=== PATIENT | male | born 1950 | race American Indian/Alaskan Native ===

== ENCOUNTER 2017-03-17 11:26 | Day surgery (SDC) | payer MEDICARE, MEDICAID ==
--- NOTE | 2017-03-17 14:59 | CP.SDSHP ---
Same Day Surgery H & P - History Proposed Procedure: Paracentesis Pre-Op Diagnosis: Liver disease - Allergies Allergies: Allergies JAYANT Inhibitors Allergy (Verified 03/17/17 11:50) RASH simvastatin Allergy (Verified 03/17/17 11:49) RASH - Physical Exam Vital Signs: Vital Signs 03/17/17 12:02 Temperature 98.2 F Pulse Rate 82 Respiratory 18 Rate Blood Pressure 125/67 O2 Sat by Pulse 96 Oximetry Short Stay Discharge - Short Stay Discharge Admitting Diagnosis/Reason for Visit: LIVER CIRRHOSIS Disposition: HOME/ ROUTINE
[2017-03-17] MEDS ORDERED: Albumin Human 25% (12.5 gm/50 ml) IV ONE (15:00)
--- NOTE | 2017-03-17 15:00 | PCM.SURG1 ---
Surgeon's Initial Post Op Note - Surgeon's Notes Surgeon: Preet Diabetes Specialist: None Pre-Operative Diagnosis: Liver disease Operative Findings: Ascites Post-Operative Diagnosis: Liver disease Operation Performed: paracentesis Specimen/Specimens Removed: Approx 5000cc of clear pale yellow fluid aspirated. Estimated Blood Loss: EBL {In ML}: 1 Date of Surgery/Procedure: 03/17/17 Time of Surgery/Procedure: 15:10
[2017-03-17 16:21] VITALS: O2SAT 98
[2017-03-17 16:43] VITALS: RESP 18
[2017-03-17 18:12] VITALS: BP 118/64; PULSE 76; TEMP 98
--- NOTE | 2017-04-03 10:30 | US ---
Date of Procedure: 03/17/2017 PROCEDURE: Ultrasound-guided paracentesis, CPT 91174 Medications: 6cc 1% Lidocaine HISTORY: Ascites, abdominal pain TECHNIQUE: Following informed consent , the patient was placed supine on the stretcher and the site was marked. A limited abdominal ultrasound was performed that showed a large amount of intra-abdominal fluid. Procedural time out was called and the Pt's abdomen was marked and prepped and draped in the usual sterile fashion. Ultrasound-guided large volume paracentesis performed. A total of 4 liters of straw colored fluid was removed without complication. IMPRESSION: Ultrasound-guided large volume paracentesis.
== END 2017-03-17 17:10 | disposition home or self-care (01) ==
LOC: C.SPRAD 11:26
PROVIDERS: ATTEND Radiology Vascular & Interventional Radiology
DX: K76.9 Liver disease, unspecified (principal); R18.8 Other ascites
CPT/HCPCS: 49083; P9047

== ENCOUNTER 2017-04-10 06:20 | Day surgery (SDC) | payer MEDICARE, MEDICAID ==
[2017-04-10 07:18] VITALS: BMI 19.1
[2017-04-10 08:05] VITALS: O2SAT 100
[2017-04-10] MEDS ORDERED: Propofol 10 mg/ml Inj (20 ML) ONE (08:32)
[2017-04-10] MEDS ORDERED: Lidocaine Hydrochloride 5 ML INJ ONE (08:32)
[2017-04-10 09:13] VITALS: TEMP 97.5
[2017-04-10 11:15] VITALS: BP 117/60; PULSE 76; RESP 14
== END 2017-04-10 11:00 | disposition home or self-care (01) ==
LOC: C.ENDO 06:20
PROVIDERS: ATTEND Internal Medicine Gastroenterology
DX: K70.30 Alcoholic cirrhosis of liver without ascites (principal); I85.10 Secondary esophageal varices without bleeding; K76.6 Portal hypertension; K29.50 Unspecified chronic gastritis without bleeding; K31.89 Other diseases of stomach and duodenum
CPT/HCPCS: 43239; 43244; 88305; 88342; J2704